=== PATIENT | male | born 1970 | race Caucasian/White ===

== ENCOUNTER → 2019-09-04 | Outpatient (CLI) | payer OTHER ==
[~2019-09-04] MED LIST: CEPH500 PO; IBUP800 PO; OXYACE7.5T PO; PENVK500 PO; Percocet 5-3251 EACH PO
[2019-09-05 08:35] LABS: Adenovirus F 40/41 Not Detected (NOT DETECT); Astrovirus Not Detected (NOT DETECT); Campylobacter Sp Not Detected (NOT DETECT); Cryptosporidium Not Detected (NOT DETECT); Cyclospora Cayetanensis Not Detected (NOT DETECT); E. Coli O157 Not Detected (NOT DETECT); Entamoeba Histolytica Not Detected (NOT DETECT); Enteroaggregative E. coli-EAEC Not Detected (NOT DETECT); Enteropathogenic E. coli-EPEC Not Detected (NOT DETECT); Enterotoxigenic E. coli-ETEC Not Detected (NOT DETECT); Giardia Lamblia Not Detected (NOT DETECT); Norovirus GI/GII Not Detected (NOT DETECT); Plesiomonas Shigelloides Not Detected (NOT DETECT); Rotavirus A Not Detected (NOT DETECT); Salmonella Sp Not Detected (NOT DETECT); Sapovirus Not Detected (NOT DETECT); Shiga Toxin-prod E. coli-STEC Not Detected (NOT DETECT); Shigella/Enteroin E. coli-EIEC Not Detected (NOT DETECT); Vibrio Cholerae Not Detected (NOT DETECT); Vibrio Sp Not Detected (NOT DETECT); Yersinia Enterocolitica Not Detected (NOT DETECT)
[2019-09-05 09:48] LABS: Stool Occult Bld Immuno 1 Negative (NEGATIVE)
== END | disposition home or self-care (01) ==
LOC: LAB EV 11:24 → LAB FUT 08-28 16:30
PROVIDERS: Physician Assistant
DX: K52.9 Noninfective gastroenteritis and colitis, unspecified (principal)
CPT/HCPCS: 0097U; 82274

== ENCOUNTER 2020-10-18 13:31 | Emergency (ER) | payer OTHER ==
[~2020-10-18] VITALS: Ht 167.6 cm; Wt 82.5 kg
== END 2020-10-18 17:10 | disposition home or self-care (01) ==
LOC: ER 13:31
DX: M79.604 Pain in right leg (principal); M54.5 Low back pain; I10 Essential (primary) hypertension; Z87.891 Personal history of nicotine dependence
CPT/HCPCS: 96374; 96375; 99282-25; J1100; J1885

== ENCOUNTER 2020-10-24 15:21 | Observation (INO) | payer OTHER ==
[~2020-10-24] VITALS: Ht 167.6 cm; Wt 81.7 kg
[2020-10-24 16:30] LABS: BASOPHILS ABSOLUTE AUTO 0.04 K/mm3 (0.00-0.23); BASOPHILS PERCENT AUTO 0 % (0-2); EOSINOPHILS ABSOLUTE AUTO 0.15 K/mm3 (0.00-0.68); EOSINOPHILS PERCENT AUTO 1 % (0-6); Hematocrit 40.9 % (37.0-53.0); IMMATURE GRAN ABSOLUTE AUTO 0.04 K/mm3 (0.00-0.10); IMMATURE GRAN PERCENT AUTO 0 % (0-1); LYMPHOCYTES ABSOLUTE AUTO 2.51 K/mm3 (0.84-5.20); LYMPHOCYTES PERCENT AUTO 22 % (21-46); MONOCYTES ABSOLUTE AUTO 0.74 K/mm3 (0.16-1.47); MONOCYTES PERCENT AUTO 7 % (4-13); Mean Corpuscular HGB 30.1 pg (26.0-34.0); Mean Corpuscular HGB Conc 34.2 g/dL (31.5-36.5); Mean Corpuscular Volume 88 fL (80-100); Mean Platelet Volume 10.3 fL (9.1-12.4); NEUTROPHILS ABSOLUTE AUTO 7.88 K/mm3 (1.96-9.15); NEUTROPHILS PERCENT AUTO 69 % (41-73); Platelet Count 306 K/mm3 (150-400); RDW Coefficient Variation 12.9 % (11.7-14.2); RDW Standard Deviation 41.3 fL (35.1-46.3); Red Blood Cell Count 4.65 M/mm3 (4.30-5.90); White Blood Cell Count 11.36 K/mm3 (4.00-11.30)
[2020-10-24 16:40] LABS: Source, Urine Clean Catch
[2020-10-24 16:44] LABS: Appearance, Urine Clear (Clear); Bilirubin, Urine Neg (Neg); Blood, Urine Neg (Neg); Color, Urine Yellow (P-Yellow); Glucose Qualitative, Urine Neg (Neg); Ketones, Urine 1+ (Neg); Leukocyte Esterase, Urine Neg (Neg); Nitrite, Urine Neg (Neg); Protein, Urine Neg (Neg); Specific Gravity, Urine 1.015 (1.003-1.022); Urobilinogen, Urine NORM (Normal); pH, Urine 6.5 (5.0-8.0)
[2020-10-24 17:00] LABS: Alanine Aminotransfer (ALT/SGP 32 U/L (12-78); Albumin, Blood 3.7 g/dL (3.4-5.0); Albumin/Globulin Ratio 1.2 (0.8-1.8); Alk Phos 105 U/L (50-136); Anion Gap 5 mmol/L (6-16); Aspartate Aminotrans (AST/SGOT 16 U/L (12-37); Bilirubin, Total 0.2 mg/dL (0.1-1.0); Blood Urea Nitrogen 15 mg/dL (8-24); Bun/Creatinine Ratio 19.1 (12.0-20.0); CO2, Blood 25 mmol/L (21-32); Calcium, Blood 8.3 mg/dL (8.5-10.1); Chloride, Blood 110 mmol/L (98-108); Creatinine, Blood 0.79 mg/dL (0.60-1.20); Ethanol (Alcohol), Blood, Med 5 mg/dL; Glomerular Filtration Rate >60 (60-); Glucose, Blood 112 mg/dL (70-99); Potassium, Blood 3.9 mmol/L (3.5-5.5); Salicylate 3.2 mg/dL (2.8-20.0); Sodium, Blood 140 mmol/L (136-145); Total Protein, Blood 6.7 g/dL (6.4-8.2)
[2020-10-24 17:07] LABS: U Amphetamine Screen Not Detected; U Barbituate Screen Not Detected; U Benzodiazapine Screen Not Detected; U Buprenorphine Screen Not Detected; U Cannabinoids Screen DETECTED; U Cocaine Screen Not Detected; U Methadone Screen Not Detected; U Methamphetamine Screen Not Detected; U Opiates Screen Not Detected; U Oxycodone Screen Not Detected; U Phencyclidine Screen Not Detected; U Propoxyphene Screen Not Detected
[2020-10-24 17:24] LABS: Acetaminophen, Random <2.0 ug/mL (10.0-30.0)
[2020-10-24] MEDS ORDERED: ESCI20 PO (18:44)
[2020-10-24] MEDS ORDERED: TAMS.4ER PO (18:44)
[2020-10-24] MEDS ORDERED: LISI20 PO (18:44)
[2020-10-24] MEDS ORDERED: OMEP20ER PO (18:44)
[2020-10-24] MEDS ORDERED: SERT25 PO (18:45)
[2020-10-24] MEDS ORDERED: SEROQUEL XR300 MG PO (18:45)
[2020-10-24] MEDS ORDERED: TRAZ100 PO (18:46)
[2020-10-24] MEDS ORDERED: CLON.1 PO (18:46)
[2020-10-24] MEDS ORDERED: Robaxin750 MG PO (18:46)
[2020-10-24] MEDS ORDERED: SERT100 PO (18:47)
[2020-10-24] MEDS ORDERED: REVATIO20 MG PO (18:47)
[2020-10-26] MEDS ORDERED: SEROQUEL XR300 MG PO (09:03)
== END 2020-10-26 09:50 | disposition home or self-care (01) ==
LOC: ER 15:21 → EOR 15:22
PROVIDERS: Physician Assistant; ADMIT Emergency Medicine
DX: F31.2 Bipolar disorder, current episode manic severe with psychotic features (principal); R45.851 Suicidal ideations; I10 Essential (primary) hypertension; F15.20 Other stimulant dependence, uncomplicated; F12.10 Cannabis abuse, uncomplicated; Z87.891 Personal history of nicotine dependence; Z91.5 Personal history of self-harm; Z91.14 Patient's other noncompliance with medication regimen
CPT/HCPCS: 80053; 81003; 85025; 99285; A9270; G0378; G0480; Q3014

== ENCOUNTER 2021-07-06 14:17 | Observation (INO) | payer OTHER ==
[~2021-07-06] VITALS: Ht 170.2 cm; Wt 79.4 kg
[~2021-07-06 14:17] MED LIST changes: +CLON.1 PO; +ESCI20 PO; +LISI20 PO; +OMEP20ER PO; +REVATIO20 MG PO; +Robaxin750 MG PO; +SEROQUEL XR300 MG PO; +SERT100 PO; +SERT25 PO; +TAMS.4ER PO; +TRAZ100 PO
[2021-07-06 15:45] LABS: BASOPHILS ABSOLUTE AUTO 0.04 K/mm3 (0.00-0.23); BASOPHILS PERCENT AUTO 0 % (0-2); EOSINOPHILS ABSOLUTE AUTO 0.12 K/mm3 (0.00-0.68); EOSINOPHILS PERCENT AUTO 1 % (0-6); Hematocrit 41.9 % (37.0-53.0); Hemoglobin 14.1 g/dL (13.5-17.5); IMMATURE GRAN ABSOLUTE AUTO 0.03 K/mm3 (0.00-0.10); IMMATURE GRAN PERCENT AUTO 0 % (0-1); LYMPHOCYTES ABSOLUTE AUTO 2.17 K/mm3 (0.84-5.20); LYMPHOCYTES PERCENT AUTO 23 % (21-46); MONOCYTES ABSOLUTE AUTO 0.85 K/mm3 (0.16-1.47); MONOCYTES PERCENT AUTO 9 % (4-13); Mean Corpuscular HGB 29.9 pg (26.0-34.0); Mean Corpuscular HGB Conc 33.7 g/dL (31.5-36.5); Mean Corpuscular Volume 89 fL (80-100); Mean Platelet Volume 10.3 fL (9.1-12.4); NEUTROPHILS ABSOLUTE AUTO 6.19 K/mm3 (1.96-9.15); NEUTROPHILS PERCENT AUTO 66 % (41-73); Platelet Count 290 K/mm3 (150-400); RDW Coefficient Variation 12.8 % (11.7-14.2); Red Blood Cell Count 4.71 M/mm3 (4.30-5.90)
[2021-07-06 15:57] LABS: Influenza A, PCR NEGATIVE (NEGATIVE); Influenza B, PCR NEGATIVE (NEGATIVE); Resp Syncytial Virus, PCR NEGATIVE (NEGATIVE); SARS-Cov-2 (COVID-19) PCR, MMC NEGATIVE (NEGATIVE)
[2021-07-06 15:57] LABS: Source, Urine Clean Catch
[2021-07-06 16:06] LABS: Appearance, Urine Clear (Clear); Bilirubin, Urine Neg (Neg); Blood, Urine Neg (Neg); Color, Urine Yellow (P-Yellow); Glucose Qualitative, Urine Neg (Neg); Ketones, Urine Neg (Neg); Leukocyte Esterase, Urine Neg (Neg); Nitrite, Urine Neg (Neg); Protein, Urine Neg (Neg); Urobilinogen, Urine NORM (Normal)
[2021-07-06 16:09] LABS: Alanine Aminotransfer (ALT/SGP 31 U/L (12-78); Albumin, Blood 3.7 g/dL (3.4-5.0); Albumin/Globulin Ratio 1.2 (0.8-1.8); Alk Phos 62 U/L (50-136); Anion Gap 5 mmol/L (6-16); Aspartate Aminotrans (AST/SGOT 12 U/L (12-37); Bilirubin, Total 0.3 mg/dL (0.1-1.0); Blood Urea Nitrogen 21 mg/dL (8-24); CO2, Blood 25 mmol/L (21-32); Calcium, Blood 9.1 mg/dL (8.5-10.1); Chloride, Blood 108 mmol/L (98-108); Creatinine, Blood 0.72 mg/dL (0.60-1.20); Ethanol (Alcohol), Blood, Med <3 mg/dL; Globulin, Blood 3.1 g/dL (2.2-4.0); Glomerular Filtration Rate >60 (60-); Glucose, Blood 88 mg/dL (70-99); Potassium, Blood 4.1 mmol/L (3.5-5.5); Salicylate 1.9 mg/dL (2.8-20.0); Sodium, Blood 138 mmol/L (136-145); Total Protein, Blood 6.8 g/dL (6.4-8.2)
[2021-07-06 16:13] LABS: Acetaminophen, Random <2.0 ug/mL (10.0-30.0)
[2021-07-06 16:35] LABS: U Amphetamine Screen Not Detected; U Barbituate Screen Not Detected; U Benzodiazapine Screen Not Detected; U Buprenorphine Screen Not Detected; U Cannabinoids Screen Not Detected; U Cocaine Screen Not Detected; U Methadone Screen Not Detected; U Methamphetamine Screen Not Detected; U Opiates Screen Not Detected; U Oxycodone Screen Not Detected; U Phencyclidine Screen Not Detected; U Propoxyphene Screen Not Detected
== END 2021-07-09 12:28 | disposition home or self-care (01) ==
LOC: ER 14:17 → EOR 14:18
PROVIDERS: ADMIT Emergency Medicine
DX: F25.1 Schizoaffective disorder, depressive type (principal); I10 Essential (primary) hypertension; G89.29 Other chronic pain; M54.9 Dorsalgia, unspecified; Z79.899 Other long term (current) drug therapy; Z20.822 Contact with and (suspected) exposure to COVID-19
CPT/HCPCS: 0241U; 36415; 80053; 81003; 85025; 99285; A9270; G0378; G0480; Q3014

== ENCOUNTER 2021-07-09 22:50 | Emergency (ER) | payer OTHER ==
[~2021-07-09] VITALS: Ht 170.2 cm; Wt 79.4 kg
== END 2021-07-10 00:05 | disposition home or self-care (01) ==
LOC: ER 22:50
DX: J00 Acute nasopharyngitis [common cold] (principal); Z59.00 Homelessness unspecified; F31.9 Bipolar disorder, unspecified; Z79.899 Other long term (current) drug therapy
CPT/HCPCS: 99281

== ENCOUNTER 2021-07-23 03:19 | Emergency (ER) | payer OTHER ==
[~2021-07-23] VITALS: Ht 170.2 cm; Wt 77.1 kg
== END 2021-07-23 05:36 | disposition home or self-care (01) ==
LOC: ER 03:19
DX: S91.311A Laceration without foreign body, right foot, initial encounter (principal); S90.414A Abrasion, right lesser toe(s), initial encounter; W26.9XXA Contact with unspecified sharp object(s), initial encounter; Z79.899 Other long term (current) drug therapy; I10 Essential (primary) hypertension; F17.200 Nicotine dependence, unspecified, uncomplicated
CPT/HCPCS: 99283

== ENCOUNTER 2021-09-08 07:29 | Emergency (ER) | payer OTHER ==
[~2021-09-08] VITALS: Ht 175.3 cm; Wt 81.7 kg
== END 2021-09-08 07:59 ==
LOC: ER 07:29
DX: T69.9XXA Effect of reduced temperature, unspecified, initial encounter (principal); F17.200 Nicotine dependence, unspecified, uncomplicated; Z79.899 Other long term (current) drug therapy
CPT/HCPCS: 99282

== ENCOUNTER 2024-04-28 15:48 | Observation (INO) | payer OTHER ==
[~2024-04-28] VITALS: Ht 170.2 cm; Wt 90.7 kg
[2024-04-28 18:00] LABS: BASOPHILS ABSOLUTE AUTO 0.03 K/mm3 (0.00-0.23); BASOPHILS PERCENT AUTO 0 % (0-2); EOSINOPHILS ABSOLUTE AUTO 0.23 K/mm3 (0.00-0.68); EOSINOPHILS PERCENT AUTO 2 % (0-6); Hematocrit 41.9 % (37.0-53.0); IMMATURE GRAN ABSOLUTE AUTO 0.05 K/mm3 (0.00-0.10); IMMATURE GRAN PERCENT AUTO 0 % (0-1); LYMPHOCYTES ABSOLUTE AUTO 2.39 K/mm3 (0.84-5.20); LYMPHOCYTES PERCENT AUTO 20 % (21-46); MONOCYTES ABSOLUTE AUTO 0.98 K/mm3 (0.16-1.47); MONOCYTES PERCENT AUTO 8 % (4-13); Mean Corpuscular HGB 29.5 pg (26.0-34.0); Mean Corpuscular HGB Conc 33.4 g/dL (31.5-36.5); Mean Corpuscular Volume 88 fL (80-100); Mean Platelet Volume 9.9 fL (9.1-12.4); NEUTROPHILS ABSOLUTE AUTO 8.33 K/mm3 (1.96-9.15); NEUTROPHILS PERCENT AUTO 69 % (41-73); Platelet Count 343 K/mm3 (150-400); RDW Coefficient Variation 13.2 % (11.7-14.2); RDW Standard Deviation 43.1 fL (35.1-46.3); Red Blood Cell Count 4.74 M/mm3 (4.30-5.90); White Blood Cell Count 12.01 K/mm3 (4.00-11.30)
[2024-04-28 18:20] LABS: Salicylate 3.7 mg/dL (2.8-20.0)
[2024-04-28 18:22] LABS: Alanine Aminotransfer (ALT/SGP 46 U/L (12-78); Albumin, Blood 3.9 g/dL (3.4-5.0); Albumin/Globulin Ratio 1.1 (0.8-1.8); Alk Phos 96 U/L (50-136); Anion Gap 7 mmol/L (3-11); Aspartate Aminotrans (AST/SGOT 31 U/L (12-37); Bilirubin, Total 0.2 mg/dL (0.1-1.0); Blood Urea Nitrogen 17 mg/dL (8-24); Bun/Creatinine Ratio 21.1 (12.0-20.0); CO2, Blood 27 mmol/L (21-32); Calcium, Blood 8.8 mg/dL (8.5-10.1); Chloride, Blood 108 mmol/L (98-108); Creatinine, Blood 0.81 mg/dL (0.60-1.20); Globulin, Blood 3.6 g/dL (2.2-4.0); Glomerular Filtration Rate 105 (60-); Glucose, Blood 117 mg/dL (70-99); Potassium, Blood 4.1 mmol/L (3.5-5.5); Sodium, Blood 138 mmol/L (136-145); Total Protein, Blood 7.5 g/dL (6.4-8.2)
[2024-04-28 18:23] LABS: Acetaminophen, Random <2.0 ug/mL (10.0-30.0); Ethanol (Alcohol), Blood, Med <3 mg/dL
[2024-04-28 18:25] LABS: Source, Urine Clean Catch
[2024-04-28 18:28] LABS: Appearance, Urine Clear (Clear); Bilirubin, Urine Neg (Neg); Blood, Urine Neg (Neg); Color, Urine Yellow (P-Yellow); Glucose Qualitative, Urine Neg (Neg); Ketones, Urine Neg (Neg); Leukocyte Esterase, Urine 1+ (Neg); Nitrite, Urine Neg (Neg); Protein, Urine Neg (Neg); Urobilinogen, Urine NORM (Normal)
[2024-04-28 18:42] LABS: Bacteria Few /hpf; Red Blood Cells, Urine Not Seen /hpf (0-2); Squamous Epithelial Cells Not Seen /hpf (Few)
[2024-04-28 18:43] LABS: U Amphetamine Screen Not Detected; U Barbituate Screen Not Detected; U Benzodiazapine Screen Not Detected; U Buprenorphine Screen Not Detected; U Cannabinoids Screen DETECTED; U Cocaine Screen Not Detected; U Methadone Screen Not Detected; U Methamphetamine Screen Not Detected; U Opiates Screen Not Detected; U Oxycodone Screen Not Detected; U Phencyclidine Screen Not Detected
[2024-04-28] MEDS ORDERED: QUEtiapine Fumarate 300 MG Tab PO ONE (18:50)
[2024-04-28] MEDS ORDERED: Ibuprofen 400 MG Tab PO ONE (19:25)
[2024-04-28] MEDS ORDERED: Nicotine 21 MG PATCH TOP ONE (19:45)
[2024-04-28] MEDS ORDERED: TraZODone HCl 100 MG Tab PO SCH (21:00)
[2024-04-28] MEDS ORDERED: QUEtiapine Fumarate 300 MG Tab PO SCH (21:00)
[2024-04-29] MEDS ORDERED: Lisinopril 20 MG Tab PO SCH (09:00)
[2024-04-29] MEDS ORDERED: Divalproex Sodium 500 MG TABLET.DR PO ONE (09:25)
[2024-04-29] MEDS ORDERED: Divalproex Sodium 500 MG TABLET.DR PO SCH ×2 (10:00→21:00)
[2024-04-29] MEDS ORDERED: Nicotine Polacrilex 2 MG Gum PO ONE (12:15)
[2024-04-29 13:46] VITALS: BP 139/72
[2024-05-01] MEDS ORDERED: AMLO10 PO ×2 (11:30→11:32)
[2024-05-01] MEDS ORDERED: Prozac20 MG PO (11:30)
[2024-05-01] MEDS ORDERED: KEPPRA250 M1 PO (11:30)
[2024-05-01] MEDS ORDERED: LOSA50 PO (11:31)
[2024-05-01] MEDS ORDERED: RISP3 PO (11:32)
[2024-05-01] MEDS ORDERED: LEVE500 PO (11:33)
[2024-05-01] MEDS ORDERED: LOSA50 (11:34)
== END 2024-04-30 15:24 | disposition other institution (70) ==
LOC: ER 15:48 → EOR 15:49
PROVIDERS: Physician Assistant; ADMIT Emergency Medicine
DX: F30.9 Manic episode, unspecified (principal); R45.851 Suicidal ideations; I10 Essential (primary) hypertension; Z79.899 Other long term (current) drug therapy; F17.200 Nicotine dependence, unspecified, uncomplicated
CPT/HCPCS: 80053; 80320; 81001; 85025; 86592; 87086; 93005; 93010; 99285-25; A9270; G0378; G0480

== ENCOUNTER 2024-04-29 09:01 | Inpatient (IN) | payer OTHER ==
[~2024-04-29] VITALS: Ht 170.2 cm; Wt 90.9 kg
[2024-04-29] MEDS ORDERED: Nicotine 21 MG PATCH TOP ONE (15:35)
[2024-04-29 16:00] VITALS: BP 136/99
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
[2024-04-29 19:41] VITALS: BP 146/98
[2024-04-29] MEDS ORDERED: Divalproex Sodium 500 MG TABLET.DR PO SCH (21:00)
[2024-04-29] MEDS ORDERED: TraZODone HCl 100 MG Tab PO SCH (21:00)
--- NOTE | 2024-04-30 05:06 | NUR ---
Juanjo in room lying in bed at start of shift, A&O x 4, appears well-groomed, hyperverbal, with rapid pressured speech, fidgety, and overbundance of thought. Patient stated he was frustrated with his for not calling or coming to visit and then proceeded to say she is the reason he is sick. PT reported his psychosis started in 2019 due to the causing him stress. 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 PT denied SI/HI/AVTH and able to contract for safety while on the unit. PT did endorse daily nighthmares, and difficulty staying asleep at HS. CIWA scores this shift 5-0-0. PT endored pain 2/10 to his BL feet/ankles due [place]. Denied need for PRN pain medication stating, "I don't take pills since that doctor gave me pills that made me sleep all the time." This RN provided medication education on HS scheduled meds which PT took without incident. PT did display persecutory delusions of being locked in his room by staff and not being allowed to come out. PT observed by staff to state "I cannot be locked in here." PT also appeared to be suspicious of staff. PT encouraged to come out to milieu but would just photovoltaic installer the doorway looking down the werner. PT did eventually come out in the werner and pace. PT observed to have a vocal tic of "ugh" that he would repeat over and over. When questioned, PT reported he picked it up a long time ago and has been doing it ever since. PT did awake x 1 for snack and hydration. PT also showered this shift. Denied all other concerns. Safety measures maintained via Q15 minute checks.
[2024-04-30 07:34] VITALS: BP 143/93
[2024-04-30] MEDS ORDERED: Ibuprofen 600 MG Tab PO PRN (08:00)
[2024-04-30] MEDS ORDERED: Lisinopril 20 MG Tab PO SCH (09:00)
[2024-04-30] MEDS ORDERED: Nicotine 21 MG PATCH TOP SCH (09:00)
--- NOTE | 2024-04-30 11:13 | NUR ---
MORNING NURSES NOTE. PT WAS UP AT THE BEGINNING OF SHIFT., ATE BREAKFAST THEN WAS INTERVIEWED BY THE POLITICAL ANTHROPOLOGIST. WENT TO INTERVIEW PATIENT AND HE IS SASLEEP AT THIS TIME... HE STATED THIS AM THAT HE DIDN'T SLEEP WELL TO THE A. WILL LET SLEEP A BIT THEN INTERVIEW HIM AFTER LUNCH WHEN HE IS UP.
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
[2024-04-30 15:02] VITALS: BP 140/91
--- NOTE | 2024-04-30 15:03 | NUR ---
BP RECHECK 140/91, NOT MUCH BETTER THAN FROM THIS MORNING WITH MEDICATIONS 143/93
--- NOTE | 2024-04-30 15:05 | NUR ---
UP AND BEEN TO GROUPS AND MINGLING WITH OTHERS. NO COMPLAINTS AT THIS TIME
--- NOTE | 2024-04-30 15:07 | NUR ---
PATIENT HAD A HAIR CUT IN STYLE OF A AMHARIC AND HE REALLY LIKES IT.
[2024-04-30] MEDS ORDERED: Polyethylene Glycol 3350 17 gm PO ONE (15:20)
[2024-04-30] MEDS ORDERED: TraZODone HCl 100 MG Tab PO SCH ×2 (21:00)
[2024-04-30 21:03] VITALS: BP 137/102
[2024-05-01 08:23] VITALS: BP 133/90
[2024-05-01] MEDS ORDERED: Polyethylene Glycol 3350 17 gm PO SCH (09:00)
--- NOTE | 2024-05-01 09:06 | NUR ---
Rosa Maria attempted to contact Tristan Walters (i.e. pt ) by phone at 0905am in order to view housing arrangements post pt discharge. Rosa Maria left a vm. Rosa Maria will attempt to contact Tristan at another time.
[2024-05-01] MEDS ORDERED: KEPPRA250 M1 PO (11:30)
[2024-05-01] MEDS ORDERED: Prozac20 MG PO (11:30)
[2024-05-01] MEDS ORDERED: AMLO10 PO ×2 (11:30→11:32)
[2024-05-01] MEDS ORDERED: LOSA50 PO (11:31)
[2024-05-01] MEDS ORDERED: RISP3 PO (11:32)
[2024-05-01] MEDS ORDERED: LEVE500 PO (11:33)
[2024-05-01] MEDS ORDERED: LOSA50 (11:34)
--- NOTE | 2024-05-01 15:01 | NUR ---
ACT REFERRAL Sw faxed ACT referall to attention of Jenniffer Teran fax ([phone])
--- NOTE | 2024-05-01 17:41 | NUR ---
SHIFT SUMMARY PT AxOx4. PLEASANT AND COOPERATIVE WITH CARE. PT DENIED SI/HI AND AVH THIS SHIFT. HE WAS PARTICIPATING IN GROUPS TODAY ALONG WITH MINGLING ON THE UNIT WITH STAFF/PEERS. PT REPORTS FEELING MUCH BETTER THAN WHEN HE CAME IN. MEDICATED FOR CHRONIC BACK PAIN x1 THIS SHIFT WITH REPORTED RELIEF. PT USED THE PHONE TO CALL MULTIPLE TIMES THIS SHIFT. BEHAVIORS APPEAR APPROPRIATE DURING CALLS. PT REPORTS HIS WANTS TO COME VISIT HIM IN THE BHU, BUT HE DOESN'T KNOW WHEN SHE CAN YET. PT DENIES ANY NEEDS AT THIS TIME. POSSIBLE DC ON Saturday05/05/24 WHEN INVOLUNTARY MH HOLD EXPIRES.
[2024-05-01 20:01] VITALS: BP 152/99
[2024-05-02 08:05] VITALS: BP 148/82
--- NOTE | 2024-05-02 16:44 | NUR ---
SHIFT SUMMARY PT A/O X4; PLEASANT AND COOPERATIVE WITH CARE. PT REPORTS THAT HE IS "DOING MUCH BETTER" TODAY. HE DENIES SI, HI, OR ANY HALLUCINATIONS. PT HAS BEEN OUT OF HIS ROOM AND PARTICIPATING IN MILEU ACTIVITIES. HE TALKED WITH HIS ON THE PHONE AND BECAME UPSET, BUT WAS ABLE TO KEEP CONTROL. HIS CAME IN AND VISITED AND WHEN SHE CAME IN SHE SEEMED TENSE. NOT WANTING PT TO DISCHARGE AND WANTING PT TO REMAIN IN THE BHU FOR A FEW MORE WEEKS. DESPITE THE SAYING THESE THINGS, THE PT REPORTS THAT "IT WAS A GOOD VISIT".
[2024-05-02 20:59] VITALS: BP 133/73
[2024-05-03 09:13] VITALS: BP 132/83
--- NOTE | 2024-05-03 16:40 | NUR ---
SHIFT SUMMARY PT A/O X4; PLEASANT AND COOPERATIVE WITH CARE. PT DENIES SI, HI, OR ANY HALLUCINATIONS. PT REPORTS THAT HE FEELS "GOOD" THIS SHIFT BUT REPORTED SOME BACK/SHOULDER PAIN. HE SAID THAT HE GETS BACK PAIN FROM "[place]" FOR HIS . PT MEDICATED PER EMR. PT PARTICIPATING IN MILEU ACTIVITIES. HE SPOKE WITH HIS ON THE PHONE ONCE THIS SHIFT.
[2024-05-03 20:26] VITALS: BP 131/87
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
[2024-05-04 08:10] VITALS: BP 142/88
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
--- NOTE | 2024-05-04 14:59 | NUR ---
General Assistance referral sent via secure email. Spoke with patient r/t General Assistance program. Patient interested and requested that referral be sent. OLI obtained from patient for referral.
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
--- NOTE | 2024-05-04 15:16 | NUR ---
Rosa Maria contacted [facility] crisis at 1504pm and remained on line with Aleshia until 1514. Aleshia advised that sw reached [facility] crisis after hours line due to high call volume. Rosa Maria contacted [facility] in order to schedule pt f/u appts. [facility] staff will attempt to reach [facility] at another time to schedule f/u appts.
--- NOTE | 2024-05-04 18:25 | NUR ---
SHIFT SUMMARY: PT ALERT, ORIENTED AND COOPERTIVE DURING SHIFT. COMPLIANT WITH MEDICATIONS AND GROUP. HE PARTICIPATED IN DEPT MILIEU AND ATE HIS MEALS. DENIED SI AND AVH. PT DID DISCUSS HAVING HI, SEE NURSES NOTE FROM SARAH COLEMAN. [facility] REFERRAL SENT AND JD EDWARDS HAS BEEN WORKING ON DISCHARGE PLAN. HE SPOKE WITH HIS ON THE PHONE A COUPLE OF TIMES THROUGHOUT THE DAY. MEDICATED WITH IBUPROFEN FOR SHOULDER PAIN.
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
[2024-05-05 08:16] VITALS: BP 121/77
--- NOTE | 2024-05-05 08:39 | NUR ---
Rosa Maria received a return call from Felix at 836am and remained learning solutions specialist until 839am with Pedro Julian. Rosa Maria advised Eliel that the pt is involuntary. Eliel has scheduled therapy with pt for 05/07 at 1300pm. Eliel advised once he meets with the pt he will place a referral for pcp and psychiatric services within involuntary time frame.
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
== END 2024-05-05 16:29 | disposition home or self-care (01) | DRG 885 ==
LOC: BHU 09:01
PROVIDERS: ADMIT Psychiatry & Neurology Psychiatry
DX: F31.30 Bipolar disorder, current episode depressed, mild or moderate severity, unspecified (principal); F15.20 Other stimulant dependence, uncomplicated; R45.851 Suicidal ideations; F23 Brief psychotic disorder; M54.9 Dorsalgia, unspecified; I10 Essential (primary) hypertension; Z90.49 Acquired absence of other specified parts of digestive tract; Z98.890 Other specified postprocedural states; Z79.899 Other long term (current) drug therapy
CPT/HCPCS: A9270

== ENCOUNTER 2024-05-11 16:59 | Emergency (ER) | payer OTHER ==
[~2024-05-11] VITALS: Ht 167.6 cm; Wt 92.1 kg
[~2024-05-11 16:59] MED LIST changes: +AMLO10 PO; +KEPPRA250 M1 PO; +LEVE500 PO; +LOSA50; +LOSA50 PO; +Prozac20 MG PO; +RISP3 PO
[2024-05-11 17:46] VITALS: BP 146/97
[2024-05-11] MEDS ORDERED: Trazodone HCl300 MG PO (17:56)
[2024-05-11] MEDS ORDERED: DIVA500EC PO (17:56)
== END 2024-05-11 18:01 | disposition home or self-care (01) ==
LOC: ER 16:59
DX: Z76.0 Encounter for issue of repeat prescription (principal); F17.200 Nicotine dependence, unspecified, uncomplicated; M54.9 Dorsalgia, unspecified; G89.29 Other chronic pain; F31.9 Bipolar disorder, unspecified; I10 Essential (primary) hypertension; F41.0 Panic disorder [episodic paroxysmal anxiety]
CPT/HCPCS: 99281

== ENCOUNTER 2024-06-22 15:18 | Emergency (ER) | payer OTHER ==
[~2024-06-22] VITALS: Ht 167.6 cm; Wt 90.7 kg
[~2024-06-22 15:18] MED LIST changes: +DIVA500EC PO; +Trazodone HCl300 MG PO
[2024-06-22 15:22] VITALS: BP 123/90
[2024-06-22] MEDS ORDERED: OLANZapine ODT 5 MG Tab PO ONE (15:30)
[2024-06-22 16:49] LABS: BASOPHILS ABSOLUTE AUTO 0.02 K/mm3 (0.00-0.23); BASOPHILS PERCENT AUTO 0 % (0-2); EOSINOPHILS ABSOLUTE AUTO 0.21 K/mm3 (0.00-0.68); EOSINOPHILS PERCENT AUTO 2 % (0-6); Hematocrit 39.2 % (37.0-53.0); Hemoglobin 13.4 g/dL (13.5-17.5); IMMATURE GRAN ABSOLUTE AUTO 0.04 K/mm3 (0.00-0.10); IMMATURE GRAN PERCENT AUTO 0 % (0-1); LYMPHOCYTES ABSOLUTE AUTO 2.64 K/mm3 (0.84-5.20); LYMPHOCYTES PERCENT AUTO 24 % (21-46); MONOCYTES ABSOLUTE AUTO 0.88 K/mm3 (0.16-1.47); MONOCYTES PERCENT AUTO 8 % (4-13); Mean Corpuscular HGB 29.9 pg (26.0-34.0); Mean Corpuscular HGB Conc 34.2 g/dL (31.5-36.5); Mean Corpuscular Volume 88 fL (80-100); Mean Platelet Volume 10.5 fL (9.1-12.4); NEUTROPHILS ABSOLUTE AUTO 7.23 K/mm3 (1.96-9.15); NEUTROPHILS PERCENT AUTO 66 % (41-73); Platelet Count 286 K/mm3 (150-400); RDW Coefficient Variation 13.6 % (11.7-14.2); RDW Standard Deviation 43.5 fL (35.1-46.3); Red Blood Cell Count 4.48 M/mm3 (4.30-5.90); White Blood Cell Count 11.02 K/mm3 (4.00-11.30)
[2024-06-22 17:44] LABS: Alanine Aminotransfer (ALT/SGP 31 U/L (12-78); Albumin, Blood 3.7 g/dL (3.4-5.0); Albumin/Globulin Ratio 1.2 (0.8-1.8); Alk Phos 69 U/L (50-136); Anion Gap 8 mmol/L (3-11); Aspartate Aminotrans (AST/SGOT 14 U/L (12-37); Bilirubin, Total 0.2 mg/dL (0.1-1.0); Blood Urea Nitrogen 13 mg/dL (8-24); Bun/Creatinine Ratio 18.8 (12.0-20.0); CO2, Blood 25 mmol/L (21-32); Calcium, Blood 8.6 mg/dL (8.5-10.1); Chloride, Blood 108 mmol/L (98-108); Creatinine, Blood 0.69 mg/dL (0.60-1.20); Glomerular Filtration Rate 111 (60-); Glucose, Blood 114 mg/dL (70-99); Potassium, Blood 3.9 mmol/L (3.5-5.5); Sodium, Blood 137 mmol/L (136-145); Total Protein, Blood 6.7 g/dL (6.4-8.2); Valproic Acid 7.8 ug/mL (50.0-100.0)
[2024-06-22 17:49] LABS: Influenza A, PCR NEGATIVE (NEGATIVE); Influenza B, PCR NEGATIVE (NEGATIVE); Resp Syncytial Virus, PCR NEGATIVE (NEGATIVE); SARS-Cov-2 (COVID-19) PCR, MMC NEGATIVE (NEGATIVE)
[2024-06-22 19:39] LABS: U Amphetamine Screen DETECTED; U Barbituate Screen Not Detected; U Benzodiazapine Screen Not Detected; U Buprenorphine Screen Not Detected; U Cannabinoids Screen Not Detected; U Cocaine Screen Not Detected; U Methadone Screen Not Detected; U Methamphetamine Screen DETECTED; U Opiates Screen Not Detected; U Oxycodone Screen Not Detected; U Phencyclidine Screen Not Detected
== END 2024-06-22 22:24 | disposition other institution (70) ==
LOC: ER 15:18
PROVIDERS: Emergency Medicine
DX: Z00.8 Encounter for other general examination (principal); I10 Essential (primary) hypertension; F15.10 Other stimulant abuse, uncomplicated; F10.10 Alcohol abuse, uncomplicated; F12.10 Cannabis abuse, uncomplicated; Z72.0 Tobacco use; Z11.52 Encounter for screening for COVID-19
CPT/HCPCS: 0241U; 80053; 80164; 84443; 85025; 86592; 99284; A9270

== ENCOUNTER 2024-06-22 18:09 | Inpatient (IN) | payer OTHER ==
[~2024-06-22] VITALS: Ht 170.2 cm; Wt 86.3 kg
[2024-06-22] MEDS ORDERED: Acetaminophen 325 MG TABLET PO PRN (21:25)
[2024-06-22] MEDS ORDERED: OLANZapine ODT 10 MG Tab MM PRN (21:25)
[2024-06-22] MEDS ORDERED: Ibuprofen 600 MG Tab PO PRN (21:25)
[2024-06-22] MEDS ORDERED: FLU VACC TS2024-25(6MOS UP)/PF 45 MCG/0.5 ML SYRINGE IM ONE (21:25)
[2024-06-22] MEDS ORDERED: Aluminum Hydroxide 320MG/5ML 473 ML PO PRN (21:25)
[2024-06-22] MEDS ORDERED: OLANZapine 10 MG Vial IM PRN (21:25)
[2024-06-22] MEDS ORDERED: Divalproex Sodium 500 MG TABLET.DR PO SCH (22:00)
[2024-06-22] MEDS ORDERED: TraZODone HCl 50 MG Tab PO ONE (23:55)
--- NOTE | 2024-06-23 05:31 | NUR ---
Patient is A&OX3, answers questions appropriately. He is extremely concerned about missing his medications for several days as he had run out of them and had not been able to replace them in a timely manner. States he feels like he is not thinking clearly and needs "to get straightened out". HE HAS AN APPOINEMENT WITH [facility] THIS MORNING AT 0900, AND HE IS VERY CONCERNED ABOUT MISSING IT. HE IS AFRAID [facility] WILL DROP HIM IF WE DON'T CONTACT THEM EARLY AND LET THEM KNOW WHERE HE IS. Sleep time so far this morning is 6 hours. will continue close monitoring
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
[2024-06-23 08:07] VITALS: BP 145/90
--- NOTE | 2024-06-23 08:08 | NUR ---
CALL PLACED TO [facility]. 06/23 0900 APPOINTMENT WITH HIS THERAPIST JOY STOREY HAS BEEN CHANGED TO 07/01 AT 11:00.
[2024-06-23] MEDS ORDERED: Multivitamins 1 Tab PO SCH (09:00)
--- NOTE | 2024-06-23 16:51 | NUR ---
SHIFT SUMMARY: PT ALERT, ORIENTED AND COOPERATIVE. PT DENIES SI AND AVH. PT STATES FRUSTRATION R/T VISIT WITH PROVIDER TODAY. PT PLANS TO REQUEST TO HAVE SOMEONE WITH HIM TOMORROW WHEN HE SPEAKS WITH THE PROVIDER. PT VISIBLE IN DEPT AND ACTIVE IN UNIT MILIEU.
[2024-06-23] MEDS ORDERED: TraZODone HCl 100 MG Tab PO SCH (21:00)
[2024-06-23 21:32] VITALS: BP 129/85
--- NOTE | 2024-06-24 04:17 | NUR ---
PATIENT WAS AWAKE IN THE MILIEU TALKING WITH PEERS AT BEGINNING OF THE SHIFT. HE HAD A SNACK AND HIS EVENING MEDICATIONS, THEN WENT TO BED EARLY. HE WAS NOTED TO BE RESTING QUIETLY WITH EYES CLOSED AND RESPIRATIONS CONFIRMED. HE HAD NO S/SX SUICIDAL IDEATION THIS SHIFT.
[2024-06-24 08:21] VITALS: BP 137/89
[2024-06-24] MEDS ORDERED: Polyethylene Glycol 3350 17 gm PO PRN (09:15)
--- NOTE | 2024-06-24 10:12 | NUR ---
DISCHARGE PAPERS SIGNED PT EDUCATED ON DISCHARGE PLAN, MEDICATIONS, AND DX EDUCATION PROVIDED. PT V/U OF MEDICATION SPONGE CLIPPER AND TRANSPORTATION PROVIDED TO [facility]IA [facility]. PT VERY APPRECIATIVE AND TEARFUL AT THIS TIME. PT ACKNOWLEDGED PROVIDED FOR METHAMPHETAMINE USE DISORDER, MANAGING BIPOLAR, AND DEPAKOTE RX INFO.
--- NOTE | 2024-06-24 10:17 | NUR ---
PT DISCHARGE PT TAXI ARRIVED SOONER THAN EXPECTED. MHA ASSISTED PT WITH BELONGINGS RETURN AND EXITED THE UNIT. PT PROVIDED WITH SNACK PRIOR TO DISCHARGE.
== END 2024-06-24 10:30 | disposition home or self-care (01) | DRG 897 ==
LOC: BHU 18:09
PROVIDERS: ADMIT Student in an Organized Health Care Education/Training Program
DX: F15.24 Other stimulant dependence with stimulant-induced mood disorder (principal); Z79.811 Long term (current) use of aromatase inhibitors; Z79.899 Other long term (current) drug therapy
CPT/HCPCS: A9270

== ENCOUNTER 2025-05-04 19:59 | Observation (INO) | payer OTHER ==
[~2025-05-04] VITALS: Ht 170.2 cm; Wt 79.4 kg
[2025-05-04] MEDS ORDERED: VALP250 (20:51)
[2025-05-04] MEDS ORDERED: OLAN5A (20:51)
[2025-05-04 21:19] LABS: BASOPHILS ABSOLUTE AUTO 0.05 K/mm3 (0.00-0.23); BASOPHILS PERCENT AUTO 1 % (0-2); EOSINOPHILS ABSOLUTE AUTO 0.68 K/mm3 (0.00-0.68); EOSINOPHILS PERCENT AUTO 7 % (0-6); Hematocrit 35.8 % (37.0-53.0); Hemoglobin 11.9 g/dL (13.5-17.5); IMMATURE GRAN ABSOLUTE AUTO 0.02 K/mm3 (0.00-0.10); IMMATURE GRAN PERCENT AUTO 0 % (0-1); LYMPHOCYTES ABSOLUTE AUTO 1.88 K/mm3 (0.84-5.20); LYMPHOCYTES PERCENT AUTO 21 % (21-46); MONOCYTES ABSOLUTE AUTO 0.90 K/mm3 (0.16-1.47); MONOCYTES PERCENT AUTO 10 % (4-13); Mean Corpuscular HGB Conc 33.2 g/dL (31.5-36.5); Mean Corpuscular Volume 93 fL (80-100); NEUTROPHILS ABSOLUTE AUTO 5.61 K/mm3 (1.96-9.15); NEUTROPHILS PERCENT AUTO 62 % (41-73); NRBC ABSOLUTE 0.00 K/mm3 (0.00-0.02); NRBC Auto 0.0 /100 WBC (0.0-0.2); Platelet Count 272 K/mm3 (150-400); RDW Coefficient Variation 14.0 % (11.7-14.2); RDW Standard Deviation 47.4 fL (35.1-46.3)
[2025-05-04 21:33] LABS: Ethanol (Alcohol), Blood, Med <3 mg/dL; Salicylate <1.7 mg/dL (2.8-20.0)
[2025-05-04 21:48] LABS: Alanine Aminotransfer (ALT/SGP 54 U/L (12-78); Albumin, Blood 3.6 g/dL (3.4-5.0); Albumin/Globulin Ratio 1.1 (0.8-1.8); Anion Gap 11 mmol/L (3-11); Aspartate Aminotrans (AST/SGOT 32 U/L (12-37); Bilirubin, Total 0.3 mg/dL (0.1-1.0); Blood Urea Nitrogen 16 mg/dL (8-24); CO2, Blood 23 mmol/L (21-32); Calcium, Blood 7.9 mg/dL (8.5-10.1); Chloride, Blood 110 mmol/L (98-108); Creatinine, Blood 0.77 mg/dL (0.60-1.20); Globulin, Blood 3.2 g/dL (2.2-4.0); Glucose, Blood 110 mg/dL (70-99); Potassium, Blood 4.1 mmol/L (3.5-5.5); Sodium, Blood 140 mmol/L (136-145); Total Protein, Blood 6.8 g/dL (6.4-8.2)
[2025-05-04 21:49] LABS: Acetaminophen, Random <2.0 ug/mL (10.0-30.0)
[2025-05-05 12:58] VITALS: BP 119/82
[2025-05-05 14:03] LABS: Source, Urine Clean Catch
[2025-05-05 14:15] LABS: Bilirubin, Urine Neg (Neg); Color, Urine Yellow (P-Yellow); Glucose Qualitative, Urine Neg (Neg); Ketones, Urine Neg (Neg); Leukocyte Esterase, Urine Neg (Neg); Protein, Urine Neg (Neg); Specific Gravity, Urine 1.010 (1.003-1.022); Urobilinogen, Urine NORM (Normal)
[2025-05-05 14:28] LABS: Red Blood Cells, Urine 0-2 /hpf (0-2); White Blood Cells, Urine 0-2 /hpf (0-5)
[2025-05-05 14:39] LABS: U Barbituate Screen Not Detected; U Benzodiazapine Screen Not Detected; U Cocaine Screen Not Detected; U Methadone Screen Not Detected; U Methamphetamine Screen DETECTED; U Opiates Screen Not Detected; U Phencyclidine Screen Not Detected
[2025-05-05 14:40] LABS: U Amphetamine Screen Not Detected; U Buprenorphine Screen Not Detected; U Cannabinoids Screen DETECTED; U Oxycodone Screen Not Detected
== END 2025-05-06 10:34 ==
LOC: ER 19:59 → EOR 20:00
PROVIDERS: Emergency Medicine; ADMIT Student in an Organized Health Care Education/Training Program
DX: F25.0 Schizoaffective disorder, bipolar type (principal); R45.851 Suicidal ideations; F41.0 Panic disorder [episodic paroxysmal anxiety]; G89.29 Other chronic pain; M54.9 Dorsalgia, unspecified; I10 Essential (primary) hypertension; F17.200 Nicotine dependence, unspecified, uncomplicated; F15.20 Other stimulant dependence, uncomplicated; Z79.899 Other long term (current) drug therapy; Z90.49 Acquired absence of other specified parts of digestive tract
CPT/HCPCS: 80053; 80320; 81001; 85025; 99285-25; G0378; G0480